=== PATIENT | female | born 1990 | race Caucasian/White ===

== ENCOUNTER 2021-07-12 20:28 | Inpatient (IN) | payer OTHER ==
[2021-07-12] MEDS: DEXTROSE 5%-LACTATED RINGERS 1,000 ML IV SCH (22:00)
[2021-07-12] MEDS ORDERED: ELECTROLYTE-148 SOLN 1,000 ML IV SCH (22:00)
[2021-07-12 23:32] VITALS: BMI 30.5
[2021-07-12 23:41] LABS: BASO % 0.2 % (0-2.0); EOS % 1.3 % (0-4.5); HEMATOCRIT 32.1 % (32.4-45.2); HEMOGLOBIN 10.8 GM/dL (10.7-15.3); LYMPH % 12.3 % (8-40); MCH 29.1 pg (25.7-33.7); MCHC 33.7 g/dl (32.0-36.0); MEAN CELL VOLUME 86.3 fl (80-96); MEAN PLT VOLUME 8.3 fl (7.5-11.1); MONO % 5.3 % (3.8-10.2); NEUT % 80.9 % (42.8-82.8); PLATELET COUNT 357 10^3/uL (134-434); RBC 3.72 M/mm3 (3.60-5.2); RDW 13.9 % (11.6-15.6); WHITE BLOOD COUNT 15.8 K/mm3 (4.0-10.0)
[2021-07-12 23:47] LABS: INR 1.04 (0.83-1.09)
[2021-07-12 23:50] LABS: ACTIVATED PTT 31.2 SECONDS (25.2-36.5)
[2021-07-13 00:02] LABS: CALCIUM 8.5 mg/dL (8.5-10.1)
[2021-07-13 00:04] LABS: BLOOD UREA NITROGEN 5.5 mg/dL (7-18)
[2021-07-13 00:07] LABS: CREATININE 0.6 mg/dL (0.55-1.3)
[2021-07-13] MEDS ORDERED: DINOPROSTONE 10 MG VAGINAL SUPPOSITORY VG ONE (01:42)
[2021-07-13] MEDS: MISOPROSTOL 100 MCG TABLET PV SCH ×2 (10:25→12:55)
[2021-07-13 12:55] LABS: HIV INTERPRETATION NEGATIVE (NEGATIVE)
[2021-07-13] MEDS ORDERED: BUTORPHANOL TARTRATE 2 MG/ML VIAL ONE (17:33)
[2021-07-13] MEDS ORDERED: PROMETHAZINE HCL 25 MG/1 ML VIAL ONE (17:34)
[2021-07-13] MEDS ORDERED: PROMETHAZINE HCL 25 MG/1 ML VIAL IVPB ONE (17:46)
[2021-07-13] MEDS ORDERED: BUTORPHANOL TARTRATE 2 MG/ML VIAL IVPB ONE (17:46)
[2021-07-13] MEDS ORDERED: OXYTOCIN 30 UNITS in 0.9% NS 30 UNIT/500 ML INFUS.BAG IVPB ONE (20:31)
[2021-07-13] MEDS: OXYTOCIN 30 UNITS in 0.9% NS 30 UNIT/500 ML INFUS.BAG IVPB SCH (20:39)
[2021-07-14] MEDS ORDERED: ONDANSETRON 4 MG/2 ML VIAL IVPUSH PRN (00:09)
[2021-07-14] MEDS ORDERED: morphine SULFATE/PF 1 MG/2 ML (2cc Syringe - QUVA) EP ONE (00:09)
[2021-07-14] MEDS ORDERED: OXYTOCIN 10 UNITS/ML VIAL ONE (00:23)
[2021-07-14] MEDS ORDERED: OXYTOCIN 20 UNITS in 0.9% NS 20 UNIT/1,000 ML INFUS.BAG IV ONE ×2 (00:24→04:05)
[2021-07-14] MEDS ORDERED: PROPOFOL 20 ML ONE (00:26)
[2021-07-14] MEDS ORDERED: SODIUM CHLORIDE 0.9% P/F 10 ML VIAL IJ ONE (00:27)
[2021-07-14] MEDS ORDERED: ceFAZolin SODIUM 1 GM VIAL ONE (00:27)
[2021-07-14] MEDS ORDERED: CITRIC ACID/SODIUM CITRATE 30 ML UNIT-DOSE CUP PO ONE (00:32)
[2021-07-14] MEDS ORDERED: ELECTROLYTE-148 SOLN 500 ML IV ONE (00:32)
[2021-07-14] MEDS ORDERED: ONDANSETRON 4 MG/2 ML VIAL ONE (02:22)
[2021-07-14] MEDS ORDERED: DEXAMETHASONE SOD PHOSPHATE 4 MG/1 ML VIAL ONE (02:22)
[2021-07-14] MEDS ORDERED: MIDAZOLAM HCL 2 MG/2 ML SINGLE DOSE VIAL ONE (02:30)
[2021-07-14] MEDS ORDERED: ACETAMINOPHEN 325 MG TABLET (FP) PO PRN (03:30)
[2021-07-14] MEDS ORDERED: IBUPROFEN 800 MG/8 ML IJ IVPB PRN (04:37)
[2021-07-14] MEDS: MISOPROSTOL 100 MCG TABLET PV SCH (06:19)
[2021-07-14] MEDS: OXYTOCIN 20 UNITS in 0.9% NS 20 UNIT/1,000 ML INFUS.BAG IV SCH (06:20)
[2021-07-14] MEDS: SENNOSIDES/DOCUSATE COMBO (SENNA PLUS) TABLET (UD) PO SCH ×2 (09:57→22:41)
[2021-07-14] MEDS: SIMETHICONE 80 MG TAB.CHEW (FP) PO PRN ×3 (13:22→22:42)
[2021-07-14] MEDS: IBUPROFEN 600 MG TABLET (FP) PO PRN ×3 (13:23→22:42)
[2021-07-14] MEDS ORDERED: oxyCODONE HCL 5 MG TABLET PO PRN (15:31)
[2021-07-15] MEDS: OXYTOCIN 20 UNITS in 0.9% NS 20 UNIT/1,000 ML INFUS.BAG IV SCH (05:18)
[2021-07-15] MEDS: IBUPROFEN 600 MG TABLET (FP) PO PRN ×3 (07:56→17:36)
[2021-07-15 08:44] LABS: BASO % 0.5 % (0-2.0); EOS % 1.6 % (0-4.5); HEMATOCRIT 25.8 % (32.4-45.2); HEMOGLOBIN 8.5 GM/dL (10.7-15.3); LYMPH % 12.7 % (8-40); MCH 29.7 pg (25.7-33.7); MCHC 33.1 g/dl (32.0-36.0); MEAN CELL VOLUME 89.8 fl (80-96); MEAN PLT VOLUME 8.8 fl (7.5-11.1); MONO % 5.8 % (3.8-10.2); NEUT % 79.4 % (42.8-82.8); PLATELET COUNT 236 10^3/uL (134-434); RBC 2.87 M/mm3 (3.60-5.2); RDW 14.4 % (11.6-15.6); WHITE BLOOD COUNT 12.6 K/mm3 (4.0-10.0)
[2021-07-15] MEDS: SENNOSIDES/DOCUSATE COMBO (SENNA PLUS) TABLET (UD) PO SCH ×2 (10:04→21:26)
[2021-07-15] MEDS: FERROUS SO4 325 MG TABLET (FP) PO SCH ×2 (10:04→17:36)
[2021-07-15] MEDS: DEXTROSE 5%-LACTATED RINGERS 1,000 ML IV SCH (19:41)
[2021-07-15] MEDS: OXYTOCIN 30 UNITS in 0.9% NS 30 UNIT/500 ML INFUS.BAG IVPB SCH (19:41)
[2021-07-15] MEDS: MISOPROSTOL 100 MCG TABLET PV SCH (19:42)
[2021-07-15] MEDS: SIMETHICONE 80 MG TAB.CHEW (FP) PO PRN (20:41)
[2021-07-15] MEDS: ACETAMINOPHEN 325 MG TABLET (FP) PO PRN (20:41)
[2021-07-16] MEDS: FERROUS SO4 325 MG TABLET (FP) PO SCH ×2 (09:00→17:51)
[2021-07-16] MEDS: SIMETHICONE 80 MG TAB.CHEW (FP) PO PRN ×3 (09:18→22:56)
[2021-07-16] MEDS: IBUPROFEN 600 MG TABLET (FP) PO PRN ×2 (09:18→17:51)
[2021-07-16] MEDS: SENNOSIDES/DOCUSATE COMBO (SENNA PLUS) TABLET (UD) PO SCH ×2 (09:48→22:56)
[2021-07-16 21:46] VITALS: TEMP 98.1
[2021-07-16] MEDS: ACETAMINOPHEN 325 MG TABLET (FP) PO PRN (22:57)
[2021-07-17] MEDS: FERROUS SO4 325 MG TABLET (FP) PO SCH (08:19)
[2021-07-17 08:29] LABS: BASO % 0.3 % (0-2.0); EOS % 4.3 % (0-4.5); HEMATOCRIT 26.7 % (32.4-45.2); HEMOGLOBIN 8.9 GM/dL (10.7-15.3); LYMPH % 16.8 % (8-40); MCH 29.2 pg (25.7-33.7); MCHC 33.2 g/dl (32.0-36.0); MEAN CELL VOLUME 88.1 fl (80-96); MEAN PLT VOLUME 8.6 fl (7.5-11.1); MONO % 6.1 % (3.8-10.2); NEUT % 72.5 % (42.8-82.8); PLATELET COUNT 329 10^3/uL (134-434); RBC 3.04 M/mm3 (3.60-5.2); WHITE BLOOD COUNT 9.7 K/mm3 (4.0-10.0)
[2021-07-17] MEDS: SENNOSIDES/DOCUSATE COMBO (SENNA PLUS) TABLET (UD) PO SCH (09:42)
[2021-07-17 12:01] VITALS: BP 115/79; PULSE 84
== END 2021-07-17 13:00 | disposition home or self-care (01) | DRG 540 ==
LOC: JLDR 20:28 → J3W 07-14 05:35
PROVIDERS: ADMIT Obstetrics & Gynecology Maternal & Fetal Medicine; ATTEND Obstetrics & Gynecology Maternal & Fetal Medicine
PROC: 10D00Z1 Extraction of Products of Conception, Low, Open Approach (ICD-10-PCS; principal; 2021-07-14)
DX: O45.8X3 Other premature separation of placenta, third trimester (principal); O36.8130 Decreased fetal movements, third trimester, not applicable or unspecified; O13.4 Gestational [pregnancy-induced] hypertension without significant proteinuria, complicating childbirth; O41.03X0 Oligohydramnios, third trimester, not applicable or unspecified; Z3A.37 37 weeks gestation of pregnancy; Z37.0 Single live birth
CPT/HCPCS: 36415; 80048; 85025; 85610; 85730; 86780; 86850; 86900; 86901; 86922; 87081; 87389; 87529; 88307-TC; C9803; U0003; U0005

== ENCOUNTER 2022-09-02 08:00 | Inpatient (IN) | payer OTHER ==
[2022-09-02 09:37] VITALS: BMI 28.1
[2022-09-02] MEDS ORDERED: morphine SULFATE/PF 1 MG/2 ML (2cc Syringe - QUVA) EP ONE (10:21)
[2022-09-02] MEDS ORDERED: ONDANSETRON 4 MG/2 ML VIAL IVPUSH PRN (10:21)
[2022-09-02] MEDS ORDERED: CITRIC ACID/SODIUM CITRATE 30 ML UNIT-DOSE CUP PO ONE (10:50)
[2022-09-02] MEDS ORDERED: DEXTROSE 5%-LACTATED RINGERS 1,000 ML IV SCH (11:00)
[2022-09-02] MEDS ORDERED: BUPIVACAINE HCL/PF 0.5% (5MG/ML) 10 ML VIAL ONE (11:16)
[2022-09-02] MEDS ORDERED: morphine SULFATE (PF) 1 MG/2 ML SYRINGE ONE (11:17)
[2022-09-02] MEDS ORDERED: ceFAZolin SODIUM 1 GM VIAL ONE (11:18)
[2022-09-02] MEDS ORDERED: SODIUM CHLORIDE 0.9% P/F 10 ML VIAL IJ ONE (11:18)
[2022-09-02] MEDS ORDERED: OXYTOCIN 10 UNITS/ML VIAL ONE ×3 (12:12→12:48)
[2022-09-02] MEDS ORDERED: PHENYLEPHRINE HCL 10 MG/1 ML SINGLE DOSE VIAL ONE (12:12)
[2022-09-02] MEDS ORDERED: ONDANSETRON 4 MG/2 ML VIAL ONE (12:13)
[2022-09-02] MEDS ORDERED: MIDAZOLAM HCL 2 MG/2 ML SINGLE DOSE VIAL ONE (12:27)
[2022-09-02 12:47] LABS: CORD BASE EXCESS -1.7 mmol/L (0-2); CORD HCO3 24.8 mmHg (20-29); CORD PCO2 48.3 mmHg (30-78); CORD pH 7.328 (7.14-7.44)
[2022-09-02 12:50] LABS: CORD HCO3 22.3 mmHg (20-29); CORD PCO2 44.6 mmHg (30-78); CORD pH 7.316 (7.14-7.44)
[2022-09-02] MEDS ORDERED: FENTANYL CITRATE/PF 50 MCG/ML VIAL ONE (13:00)
[2022-09-02] MEDS ORDERED: KETOROLAC TROMETHAMINE 30 MG/1 ML VIAL ONE (13:00)
[2022-09-02] MEDS: OXYTOCIN 20 UNITS in 0.9% NS 20 UNIT/1,000 ML INFUS.BAG IV SCH (13:23)
[2022-09-02] MEDS: FERROUS SO4 325 MG TABLET (FP) PO SCH (22:07)
[2022-09-03] MEDS ORDERED: oxyCODONE HCL 5 MG TABLET PO PRN (01:38)
[2022-09-03] MEDS: IBUPROFEN 600 MG TABLET (FP) PO PRN (02:35)
[2022-09-03 09:08] LABS: BASO % 0.6 % (0-2.0); EOS % 1.5 % (0-4.5); HEMATOCRIT 28.9 % (32.4-45.2); HEMOGLOBIN 9.6 GM/dL (10.7-15.3); LYMPH % 14.3 % (8-40); MCH 27.7 pg (25.7-33.7); MCHC 33.1 g/dl (32.0-36.0); MEAN CELL VOLUME 83.6 fl (80-96); MEAN PLT VOLUME 8.8 fl (7.5-11.1); MONO % 7.1 % (3.8-10.2); NEUT % 76.5 % (42.8-82.8); PLATELET COUNT 284 10^3/uL (134-434); RBC 3.46 M/mm3 (3.60-5.2); RDW 14.4 % (11.6-15.6); WHITE BLOOD COUNT 13.3 K/mm3 (4.0-10.0)
[2022-09-03] MEDS: FERROUS SO4 325 MG TABLET (FP) PO SCH ×2 (10:09→22:22)
[2022-09-03] MEDS: PRENATAL VITAMINS W/ FOLIC ACID TABLET (FP) PO SCH (10:09)
[2022-09-03] MEDS: SIMETHICONE 80 MG TAB.CHEW (FP) PO PRN ×2 (12:55→20:31)
[2022-09-03] MEDS: ACETAMINOPHEN 325 MG TABLET (FP) PO PRN ×2 (14:59→20:32)
[2022-09-04] MEDS: SIMETHICONE 80 MG TAB.CHEW (FP) PO PRN ×3 (06:28→21:07)
[2022-09-04] MEDS: IBUPROFEN 600 MG TABLET (FP) PO PRN ×3 (06:28→21:07)
[2022-09-04] MEDS: FERROUS SO4 325 MG TABLET (FP) PO SCH ×2 (09:42→21:07)
[2022-09-04] MEDS: PRENATAL VITAMINS W/ FOLIC ACID TABLET (FP) PO SCH (09:42)
[2022-09-04] MEDS: OXYTOCIN 20 UNITS in 0.9% NS 20 UNIT/1,000 ML INFUS.BAG IV SCH (20:58)
[2022-09-04] MEDS: DOCUSATE SODIUM 100 MG CAPSULE (FP) PO SCH (21:07)
[2022-09-05] MEDS: DOCUSATE SODIUM 100 MG CAPSULE (FP) PO SCH (06:10)
[2022-09-05 08:43] LABS: HEMATOCRIT 26.7 % (32.4-45.2); HEMOGLOBIN 9.2 GM/dL (10.7-15.3); MCH 28.8 pg (25.7-33.7); MCHC 34.3 g/dl (32.0-36.0); MEAN PLT VOLUME 8.4 fl (7.5-11.1); PLATELET COUNT 297 10^3/uL (134-434); RBC 3.18 M/mm3 (3.60-5.2); RDW 14.2 % (11.6-15.6); WHITE BLOOD COUNT 9.6 K/mm3 (4.0-10.0)
[2022-09-05 11:09] LABS: ANISOCYTOSIS 0; MACROCYTOSIS 0
[2022-09-05] MEDS: FERROUS SO4 325 MG TABLET (FP) PO SCH (11:10)
[2022-09-05] MEDS: PRENATAL VITAMINS W/ FOLIC ACID TABLET (FP) PO SCH (11:10)
[2022-09-05 11:31] VITALS: BP 123/86; PULSE 103; RESP 17; TEMP 97.8
== END 2022-09-05 13:00 | disposition home or self-care (01) | DRG 540 ==
LOC: JLDR 08:04 → J3W 15:05
PROVIDERS: ADMIT Obstetrics & Gynecology Maternal & Fetal Medicine; ATTEND Obstetrics & Gynecology Maternal & Fetal Medicine
PROC: 10D00Z1 Extraction of Products of Conception, Low, Open Approach (ICD-10-PCS; principal; 2022-09-02)
DX: O34.219 Maternal care for unspecified type scar from previous cesarean delivery (principal); O10.92 Unspecified pre-existing hypertension complicating childbirth; O24.429 Gestational diabetes mellitus in childbirth, unspecified control; O99.214 Obesity complicating childbirth; Z3A.38 38 weeks gestation of pregnancy; Z37.0 Single live birth
CPT/HCPCS: 36415; 36600; 80053; 82803; 85025; 85610; 86850; 86900; 86901; 88302-TC; 88304-TC; 88307-TC; C9803-CS; U0003; U0005